=== PATIENT | male | born 1935 | race Caucasian/White ===

== ENCOUNTER 2018-07-23 01:15 | Emergency (ER) | payer MEDICARE ==
[~2018-07-23] VITALS: Ht 170.2 cm; Wt 72.6 kg
--- NOTE | 2018-07-23 01:20 | NUR ---
PT CAME TO EMERGENCY DEPT. COMPLAINING OF HYPERTENSION, PT TOOK HIS BP AT HOME AND "IT WAS HIGH." PT HAS HX OF HYPERTENSION, AND STATES THAT HE STARTED TAKING A NEW MEDICATION, AND PT STATES FEELING DIZZY AT HOME. PT IS NOT DIZZY AT THE MOMENT. PT AXO4. RESPIRATIONS EVEN AND UNLABORED. 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 PENDING EVAL FROM ER .
[2018-07-23 02:03] LABS: BASOPHILS # (AUTO) 0.1 /CMM (0.0-0.2); BASOPHILS % (AUTO) 1.1 % (0.0-2.0); EOSINOPHILS % (AUTO) 7.5 % (0.0-6.0); HEMATOCRIT 47 % (39-51); HEMOGLOBIN 15.9 g/dL (13.5-17.5); LYMPHOCYTES # (AUTO) 1.9 /CMM (0.8-4.8); LYMPHOCYTES % (AUTO) 25.9 % (20.0-44.0); MEAN CORPUSCULAR HGB CONC 34 g/dl (31.0-36.0); MEAN CORPUSCULAR VOLUME 96 fL (80-96); MONOCYTES # (AUTO) 0.7 /CMM (0.1-1.30); MONOCYTES % (AUTO) 9.8 % (2.0-12.0); NEUTROPHILS % (AUTO) 55.7 % (43.0-81.0); PLATELET COUNT (AUTO) 180 /CMM (150-450); RED BLOOD CELL COUNT(AUTO) 4.84 MIL/uL (4.5-6.0); WHITE BLOOD COUNT (AUTO) 7.2 K/uL (4.3-11.0)
--- NOTE | 2018-07-23 02:15 | NUR ---
PT RESTING IN BED COMFORTABLY, NAD NOTED. WILL CONTINUE TO MONITOR.
[2018-07-23 02:17] LABS: CALCIUM, SERUM 9.5 mg/dL (8.5-10.1); CARBON DIOXIDE 27 mmol/L (21-32); CHLORIDE 105 mmol/L (98-107); GLUCOSE 114 mg/dL (74-106); POTASSIUM 4.1 mmol/L (3.5-5.1); SODIUM SERUM 139 mmol/L (136-145); UREA NITROGEN, BLOOD 16 mg/dL (7-18)
--- NOTE | 2018-07-23 03:23 | NUR ---
Patient discharged to home in stable condition. Written and verbal after care instructions given. Patient verbalizes understanding of instruction. Pt ambulatory with steady gait.
[2018-07-23 03:27] VITALS: BP 155/84
== END 2018-07-23 03:28 | disposition home or self-care (01) ==
LOC: ER 01:17
DX: I10 Essential (primary) hypertension (principal); R00.1 Bradycardia, unspecified; E78.00 Pure hypercholesterolemia, unspecified; F17.200 Nicotine dependence, unspecified, uncomplicated
CPT/HCPCS: 36415; 80048-TC; 84484-TC; 85025-TC